=== PATIENT | female | born 1985 | race Asian ===

== ENCOUNTER 2022-08-11 14:44 | Emergency (ER) | payer MEDICAID, OTHER ==
[~2022-08-11] VITALS: Ht 162.6 cm; Wt 57.0 kg
[~2022-08-11 14:44] MED LIST: FERR325T23 MT; IBUP-2028 PO; PREN1TAB78 MT
[2022-08-11] MEDS ORDERED: IBUP-2029 MT (19:51)
[2022-08-11] MEDS ORDERED: IBUPROFEN 600MG TABLET PO ONE (20:15)
[2022-08-11 22:16] VITALS: BP 132/72
== END 2022-08-11 22:18 | disposition home or self-care (01) ==
LOC: ER 14:44
DX: S92.351A Displaced fracture of fifth metatarsal bone, right foot, initial encounter for closed fracture (principal); E11.9 Type 2 diabetes mellitus without complications; W18.30XA Fall on same level, unspecified, initial encounter; Y93.89 Activity, other specified; Y92.89 Other specified places as the place of occurrence of the external cause; Y99.8 Other external cause status
CPT/HCPCS: 29515; 73610; 73630; 99284; Z7610